=== PATIENT | female | born 1965 | race Caucasian/White ===

== ENCOUNTER 2020-02-29 20:06 | Inpatient (IN) | payer SELFPAY ==
[~2020-02-29] VITALS: Ht 177.8 cm; Wt 121.7 kg
--- NOTE | 2020-02-29 20:18 | PHYS DOC ---
Past History Past Medical History: No Pertinent History Past Medical History obesity Past Surgical History BTL Smoking: Non-smoker Alcohol Use: Heavy (nightly) Drug Use: None General Adult EDM: Chief Complaint: palpitations, chest pressure HPI: HPI: Patient is a 54 year old female who presents for evaluation of palpitations as well as some pressure in her chest. Onset about 3:30 PM today. She also feels lightheaded. Symptoms do wax and wane. She also noted that her blood pressure was elevated 160/85 at home. There is no reported dizziness, sweats or other symptoms. Patient did not pass out. There is no focal deficits or reported lateralizing signs. Patient has not seen a physician in many years. She is on no medication Review of Systems: Review of Systems: Constitutional: Denies fever or chills Eyes: Denies change in visual acuity HENT: Denies nasal congestion or sore throat Respiratory: Denies cough or shortness of breath Cardiovascular: mild chest pain no edema GI: Denies abdominal pain, nausea, vomiting, bloody stools or diarrhea : Denies dysuria Musculoskeletal: Denies back pain or joint pain Integument: Denies rash Neurologic: Denies headache, focal weakness or sensory changes Endocrine: Denies polyuria or polydipsia Lymphatic: Denies swollen glands Psychiatric: Denies depression or anxiety Heart Score: Risk Factors: Risk Factors: DM, Current or recent (<one month) smoker, HTN, HLP, family history of CAD, obesity. Risk Scores: Score 0 - 3: 2.5% MACE over next 6 weeks - Discharge Home Score 4 - 6: 20.3% MACE over next 6 weeks - Admit for Clinical Observation Score 7 - 10: 72.7% MACE over next 6 weeks - Early Invasive Strategies Physical Exam: PE: Constitutional: Well developed, well nourished, mild acute distress, non-toxic appearance. [] HENT: Normocephalic, atraumatic, bilateral external ears normal, oropharynx moist, no oral exudates, nose normal. [] Eyes: PERRL, EOMI, conjunctiva normal, no discharge. [] Neck: Normal range of motion, no tenderness, supple. [] Cardiovascular:Heart rate regular rhythm, no murmur [] Lungs & Thorax: Bilateral breath sounds clear to auscultation [] Abdomen: Bowel sounds normal, soft, no tenderness, no masses, no pulsatile masses. [] Skin: Warm, dry, no erythema, no rash. [] Back: No tenderness. [] Extremities: No tenderness, no cyanosis, no clubbing, ROM intact, no edema. [] Neurologic: Alert and oriented X 3, normal motor function, normal sensory function, no focal deficits noted. [] Psychologic: Affect normal, judgement normal, mood normal. [] Current Patient Data: Labs: Laboratory Tests Test 02/29/20 20:30 White Blood Count 5.5 x10^3/uL Red Blood Count 4.38 x10^6/uL Hemoglobin 15.3 g/dL Hematocrit 44.2 % Mean Corpuscular Volume 101 fL Mean Corpuscular Hemoglobin 35 pg Mean Corpuscular Hemoglobin Concent 35 g/dL Red Cell Distribution Width 13.0 % Platelet Count 215 x10^3/uL Neutrophils (%) (Auto) 53 % Lymphocytes (%) (Auto) 35 % Monocytes (%) (Auto) 9 % Eosinophils (%) (Auto) 1 % Basophils (%) (Auto) 3 % Neutrophils # (Auto) 2.9 x10^3uL Lymphocytes # (Auto) 1.9 x10^3/uL Monocytes # (Auto) 0.5 x10^3/uL Eosinophils # (Auto) 0.0 x10^3/uL Basophils # (Auto) 0.2 x10^3/uL Sodium Level 140 mmol/L Potassium Level 3.8 mmol/L Chloride Level 102 mmol/L Carbon Dioxide Level 24 mmol/L Anion Gap 14 Blood Urea Nitrogen 20 mg/dL Creatinine 1.0 mg/dL Estimated GFR (Cockcroft-Gault) 57.8 BUN/Creatinine Ratio 20 Glucose Level 110 mg/dL Calcium Level 9.6 mg/dL Total Bilirubin 0.6 mg/dL Aspartate Amino Transf (AST/SGOT) 65 U/L Alanine Aminotransferase (ALT/SGPT) 53 U/L Alkaline Phosphatase 127 U/L Creatine Kinase 93 U/L Creatine Kinase MB (Mass) 2.2 ng/mL Creatine Kinase MB Relative Index 2.4 % Troponin I Quantitative 0.141 ng/mL Total Protein 7.5 g/dL Albumin 3.8 g/dL Albumin/Globulin Ratio 1.0 Lipase 110 U/L Current Medications Medications (Trade) Dose Ordered Sig/Rossy Route PRN Reason Start Time Stop Time Status Last Admin Dose Admin Aspirin (Aspirin Chewable) 324 mg 1X ONCE PO 02/29/20 20:30 02/29/20 20:31 UNV 02/29/20 20:30 EKG: EKG: EKG showed normal sinus rhythm, rate 88, leftward axis, unremarkable EKG, not STEMI read at 2017 p.m. [] Radiology/Procedures: Radiology/Procedures: [address] [id number] IMAGING REPORT Signed PATIENT: TENZIN LAND ACCOUNT: [id number] : 1965 LOCATION: ER AGE: 54 SEX: F EXAM STATUS: PRE ER ORD. PHYSICIAN: LISA MARTE DO REASON: chest pressure PROCEDURE: PORTABLE CHEST 1V INDICATION: Reason: chest pressure / Spl. Instructions: / History: COMPARISON: None. FINDINGS: Single view of chest obtained. Relative haziness at left lung base but limited evaluation given portable technique with no lateral view. No evidence of consolidation elsewhere in the lungs. Cardiac silhouette unremarkable. IMPRESSION: * Mild haziness at the left lung base. This could be secondary to overlap of structures but a focus of atelectasis or infiltrate in the region is not excluded. No consolidation elsewhere in the lungs. Electronically signed by: Nitesh Bangura MD (02/29/2020 8:54 PM) [id number] DICTATED AND SIGNED BY: NITESH BANGURA MD DATE: 02/29/202053 CC: LISA MARTE DO ~ [] Course & Med Decision Making: Course & Med Decision Making Pertinent Labs and Imaging studies reviewed. (See chart for details) [] Dragon Disclaimer: Dragon Disclaimer: This electronic medical record was generated, in whole or in part, using a voice recognition dictation system. 2119 stable, chest pain-free at this time. Options were considered and patient will admitted for observation. Dr. John was the accepting physician. We will cycle cardiac enzymes. Will likely get cardiology consult in the morning. Departure Departure: Impression: Primary Impression: Precordial chest pain Additional Impression: Elevated troponin I level Disposition: ADMITTED INPATIENT Admitting Physician: Guerrero John Condition: STABLE Justification of Admission: Justification of Admission: Justification of Admission Dx: N/A LISA MARTE DO Feb 29, 2020 20:18
[2020-02-29] MEDS ORDERED: ASPIRIN CHEWABLE 81 MG TABLET. PO ONE (20:30)
[2020-02-29 20:48] LABS: BASO # 0.2 x10^3/uL (0.0-0.2); BASO % 3 % (0-3); EOS % 1 % (0-3); HEMATOCRIT 44.2 % (36.0-47.0); HEMOGLOBIN 15.3 g/dL (12.0-15.5); LYMPH # 1.9 x10^3/uL (1.0-4.8); LYMPH % 35 % (24-48); MEAN CORPUSCULAR HEMOGLOBIN 35 pg (25-35); MEAN CORPUSCULAR HGB CONC 35 g/dL (31-37); MEAN CORPUSCULAR VOLUME 101 fL (79-100); MONO # 0.5 x10^3/uL (0.0-1.1); MONO % 9 % (0-9); NEUT # 2.9 x10^3uL (1.8-7.7); NEUT % 53 % (31-73); PLATELET COUNT 215 x10^3/uL (140-400); RED BLOOD COUNT 4.38 x10^6/uL (3.50-5.40); WHITE BLOOD COUNT 5.5 x10^3/uL (4.0-11.0)
--- NOTE | 2020-02-29 20:57 | RAD ---
INDICATION: Reason: chest pressure / Spl. Instructions: / History: COMPARISON: None. FINDINGS: Single view of chest obtained. Relative haziness at left lung base but limited evaluation given portable technique with no lateral view. No evidence of consolidation elsewhere in the lungs. Cardiac silhouette unremarkable. IMPRESSION: * Mild haziness at the left lung base. This could be secondary to overlap of structures but a focus of atelectasis or infiltrate in the region is not excluded. No consolidation elsewhere in the lungs. Electronically signed by: Toni Stephenson MD (02/29/2020 8:54 PM) [id number]
[2020-02-29 20:58] LABS: CALCIUM 9.6 mg/dL (8.5-10.1); GFR 57.8; POTASSIUM 3.8 mmol/L (3.5-5.1)
[2020-02-29 21:14] LABS: ALBUMIN 3.8 g/dL (3.4-5.0); TOTAL BILIRUBIN 0.6 mg/dL (0.2-1.0); TOTAL PROTEIN 7.5 g/dL (6.4-8.2)
[2020-02-29] MEDS ORDERED: ONDANSETRON PF 4 MG/2 ML VIAL. IVP PRN (21:30)
--- NOTE | 2020-02-29 22:13 | EKG ---
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
[2020-02-29 22:32] VITALS: BP 128/83
[2020-02-29] MEDS ORDERED: ACETAMINOPHEN 500 MG TABLET PO PRN (23:45)
[2020-03-01] MEDS ORDERED: [UNRECOGNIZED DRUG - OTHER] PO (00:48)
--- NOTE | 2020-03-01 01:00 | NUR ---
The patient, TENZIN LAND, 54 y/o, F admitted by SAMI SALDAÑA MD, was given written information regarding hospital policies, unit procedures and contact persons. Valuables were checked and noted. PT presented to the ED with complaints of pain behind the RT shoulder blade at 2-10. PT assessed and noted to have an elevated troponin. PT admitted for rule out. Cardiology will be consulted in the morning. Reviewed with PT her PMH, PSH, SH, FH and medications. PT stated she had just started (, 02/24) a new weight loss medication of HCG Olga, 10 drops TID. This is the PT's only medication. Oriented PT to the unit.
--- NOTE | 2020-03-01 01:39 | NUR ---
Dr. John notified of second elevated troponin. Orders received. Per MD, continue with Cardiology consult in am, start ordered medications, continue to monitor. MD asked to not be notified if further elevation of troponin as PT is asymptomatic at this time. Per policy, third troponin will be drawn at 0323 as originally ordered. PT sleeping at this time and will continue to monitor.
[2020-03-01] MEDS ORDERED: NITROGLYCERIN SUBLINGUAL 0.4 MG BOTTLE OF 25. SL PRN (01:45)
--- NOTE | 2020-03-01 02:02 | NUR ---
PT status changed from OBS to IPT based on self-pay status.
[2020-03-01 03:20] VITALS: BP 120/76
[2020-03-01] MEDS: METOPROLOL TART IMMED RELEASE 50 MG TABLET PO SCH ×2 (03:25→08:11)
[2020-03-01] MEDS: ASPIRIN 325 MG TABLET PO SCH ×2 (03:25→08:11)
--- NOTE | 2020-03-01 08:23 | PDOC2 ---
CARDIAC CONSULT DATE OF CONSULT Date Of Consult DATE: 03/01/20 TIME: 08:18 REASON FOR CONSULT Reason for Consult NSTEMI REFERRING PHYSICIAN Referring Physician Dr. John SOURCE Source: Chart review, Patient HPI History of Present Illness This is a 54 yo female who presented secondary to chest pain and palpitations. Patient reports she was out yesterday afternoon at a pool [employer]. When she went to leave. Began feeling bad. Reports palpitations and pressure in her central chest. Was diaphoretic, dizzy. No specific shortness of breath. Had difficulty walking back to her care. Also has some pain in her upper back. Thought initially that she was overheated. Went home and rested and continued to feel poor. Pain, palpitations persisted so she came to the ED for further evaluation and treatment. No specific worsening or relieving factors. Pain resolved in the night and has not returned. No specific medical history although she has not been to a provider in about 10 years. PAST MEDICAL HISTORY GI: GERD PAST SURGICAL HISTORY Past Surgical History: Tubal Ligation FAMILY HISTORY Family History: Cancer SOCIAL HISTORY Smoke: No ALCOHOL: heavy (1-2 Vodka drinks daily) Drugs: None Lives: Alone CURRENT MEDICATIONS Current Medications Current Medications Aspirin (Aspirin Chewable) 324 mg 1X ONCE PO Last administered on 02/29/20at 20:30; Start 02/29/20 at 20:30; Stop 02/29/20 at 21:21; Status DC Ondansetron HCl (Zofran) 4 mg PRN Q4HRS PRN IVP NAUSEA/VOMITING; Start 02/29/20 at 21:30; Stop 03/01/20 at 21:29 Acetaminophen (Tylenol) 1,000 mg PRN Q6HRS PRN PO PAIN / TEMP > 100.3'F; Start 02/29/20 at 23:45 Aspirin (Katy Aspirin) 325 mg DAILYWBKFT PO Last administered on 03/01/20at 08:11; Start 03/01/20 at 02:00 Nitroglycerin (Nitrostat) 0.4 mg PRN Q5MIN PRN SL CHEST PAIN; Start 03/01/20 at 01:45 Metoprolol Tartrate (Lopressor) 50 mg BID PO Last administered on 03/01/20at 08:11; Start 03/01/20 at 02:00 Active Scripts Active Reported [hcg triumph] 10 Drop PO TID ALLERGIES Allergies: Coded Allergies: No Known Drug Allergies (Unverified , 02/29/20) ROS Review of Systems 14 point ROS conducted with pertinent positives noted above in HPI PHYSICAL EXAM General: Alert, Oriented X3, Cooperative, No acute distress HEENT: Atraumatic, Mucous membr. moist/pink Lungs: Clear to auscultation Heart: Regular rate, Other (3/6 systolic murmur ) Abdomen: Soft, No tenderness Extremities: No edema, Normal pulses Skin: No breakdown Neuro: Normal speech, Sensation intact Psych/Mental Status: Mental status NL, Mood NL MUSCULOSKELETAL: Osteoarthritic changes both hands VITALS Vital Signs Vital Signs Date Time Temp Pulse Resp B/P (MAP) Pulse Ox O2 Delivery O2 Flow Rate FiO2 03/01/20 08:11 95 120/76 03/01/20 03:20 98.0 18 97 Room Air LABS LABS Laboratory Tests Test 02/29/20 20:30 03/01/20 00:25 White Blood Count 5.5 x10^3/uL (4.0-11.0) Red Blood Count 4.38 x10^6/uL (3.50-5.40) Hemoglobin 15.3 g/dL (12.0-15.5) Hematocrit 44.2 % (36.0-47.0) Mean Corpuscular Volume 101 fL (79-100) Mean Corpuscular Hemoglobin 35 pg (25-35) Mean Corpuscular Hemoglobin Concent 35 g/dL (31-37) Red Cell Distribution Width 13.0 % (11.5-14.5) Platelet Count 215 x10^3/uL (140-400) Neutrophils (%) (Auto) 53 % (31-73) Lymphocytes (%) (Auto) 35 % (24-48) Monocytes (%) (Auto) 9 % (0-9) Eosinophils (%) (Auto) 1 % (0-3) Basophils (%) (Auto) 3 % (0-3) Neutrophils # (Auto) 2.9 x10^3uL (1.8-7.7) Lymphocytes # (Auto) 1.9 x10^3/uL (1.0-4.8) Monocytes # (Auto) 0.5 x10^3/uL (0.0-1.1) Eosinophils # (Auto) 0.0 x10^3/uL (0.0-0.7) Basophils # (Auto) 0.2 x10^3/uL (0.0-0.2) Sodium Level 140 mmol/L (136-145) Potassium Level 3.8 mmol/L (3.5-5.1) Chloride Level 102 mmol/L (98-107) Carbon Dioxide Level 24 mmol/L (21-32) Anion Gap 14 (6-14) Blood Urea Nitrogen 20 mg/dL (7-20) Creatinine 1.0 mg/dL (0.6-1.0) Estimated GFR (Cockcroft-Gault) 57.8 BUN/Creatinine Ratio 20 (6-20) Glucose Level 110 mg/dL (70-99) Calcium Level 9.6 mg/dL (8.5-10.1) Total Bilirubin 0.6 mg/dL (0.2-1.0) Aspartate Amino Transf (AST/SGOT) 65 U/L (15-37) Alanine Aminotransferase (ALT/SGPT) 53 U/L (14-59) Alkaline Phosphatase 127 U/L (46-116) Creatine Kinase 93 U/L (26-192) Creatine Kinase MB (Mass) 2.2 ng/mL (0.0-3.6) Creatine Kinase MB Relative Index 2.4 % (0-4) Troponin I Quantitative 0.141 ng/mL (0-0.055) 3.211 ng/mL (0-0.055) Total Protein 7.5 g/dL (6.4-8.2) Albumin 3.8 g/dL (3.4-5.0) Albumin/Globulin Ratio 1.0 (1.0-1.7) Lipase 110 U/L (73-393) ASSESSMENT/PLAN Assessment/Plan 1. Chest pain, palpitations 2. NSTEMI; trop 3.7 3. GERD 4. ETOH misuse Recommendations ASA therapy Start heparin gtt Lipids, TSH Metoprolol added Echo to assess LV systolic function Given presentation in the setting of NSTEMI, recommend further ischemic evaluation with [facility]. R/b/a discussed with patient and she is agreeable to jaxson carney. Will transfer to [facility]. GIORGI. DANG ALEMAN APRN Mar 01, 2020 08:23
[2020-03-01 08:30] VITALS: BP 147/90
[2020-03-01] MEDS ORDERED: HEPARIN for IV BOLUS 10,000 UNIT/10 ML VIAL. IV ONE (08:30)
[2020-03-01] MEDS ORDERED: HEPARIN for IV BOLUS 10,000 UNIT/10 ML VIAL. IV PRN ×2 (08:30→09:00)
[2020-03-01] MEDS ORDERED: HEPARIN 25,000UTS/250ML PREMIX 250 ML IV PRN (09:00)
[2020-03-01] MEDS ORDERED: METOPROLOL TART IMMED RELEASE 25 MG TABLET PO SCH (09:00)
--- NOTE | 2020-03-01 10:21 | HP ---
ADMIT DATE: 03/01/2020 ATTENDING PHYSICIAN: Dr. Saldaña. CHIEF COMPLAINT: Chest pressure. HISTORY OF PRESENT ILLNESS: The patient is a 54-year-old female, who has been fairly healthy. She does not see any doctor. She is not on any medications. She presented with new onset of chest pressure and palpitations. About 3:30 in the afternoon, she felt lightheaded, symptoms waxed and waned. She noted that her blood pressure had been elevated at home. She does not take any medication. She had no focal deficits. She has not seen a regular doctor in many years. She is not on any medications. She has no known drug allergies. In the ED, the EKG showed a sinus tachycardia, rate about 100 per minute. The first set of cardiac enzyme was negative for myocardial necrosis. She was admitted for evaluation. However, the second set did turn positive with a troponin of 3.1. She is admitted then with a non-ST elevation myocardial infarction, non-STEMI. PAST MEDICAL HISTORY: Significant for heavy alcohol use. She drinks a fifth of vodka every 2 days. She does not smoke. She did smoke up to 20 years ago. There is no drug use. She is not on any prescription medicines. ALLERGIES: She has no known drug allergies. FAMILY HISTORY: Father at age 62 of lung cancer. Mom at age 77 of probable cardiac event; she in her sleep. There is no previous history of DC. There is no recorded diabetes. She does have hypertension related to her alcohol use. She is not aware of her cholesterol panel. REVIEW OF SYSTEMS: Significant for the symptoms that brought her in. She denied any pains currently. She denied any nausea, vomiting, diarrhea or hematemesis. All other systems reviewed and determined to be negative. 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 She is currently unemployed. PHYSICAL EXAMINATION: GENERAL: When I saw her, this is a pleasant, middle-aged female. INITIAL VITAL SIGNS: Showed a blood pressure 120/76, pulse is 95 and regular, temperature 98.0 degrees Fahrenheit, oxygen saturation 97% on room air. HEENT: Head is without trauma. Pupils are reactive. Sclerae are nonicteric. Oropharynx is clear. NECK: Supple, no bruits identified. LUNGS: Otherwise clear. CARDIOVASCULAR: Showed regular heart tones. No gallops. Peripheral pulses are palpable and full. ABDOMEN: Obese, protuberant. No organomegaly. Bowel sounds are hypoactive. EXTREMITIES: Showed no cyanosis or edema. NEUROLOGIC: Focally intact. Speech is fluent. She had no focal deficits. SKIN: Warm and dry. PERTINENT LABORATORY STUDIES: The first troponin was 0.14. The second troponin was 3.21. Electrolytes are within normal range. Nonfasting blood sugar 110 mg/dL. Hemoglobin 15.3 g/dL with a white count of 5500. Chest x-ray showed heart size to be within normal limits. There is no decompensation. No infiltrates identified. The resting 12-lead electrocardiogram showed a sinus tachycardia, no acute ST segment changes were noted. ASSESSMENT: 1. A 54-year-old female with non-ST elevation myocardial infarction. 2. Chronic alcoholism. 3. Essential hypertension. PLAN: 1. Admit to our unit. 2. Aspirin and beta dirk started. 3. Cardiology consultation in the morning for further evaluation. SAMI SALDAÑA MD DR: PAT/diana JOB#: [id number] / [id number]
[2020-03-01 11:21] VITALS: BP 146/54
--- NOTE | 2020-03-01 12:18 | NUR ---
Patient has been calm, pleasant, and cooperative this shift. She has had some mild anxiety, but appears to be reassured after talking with charge nurse. Patient is frequently on the phone with family. Awaiting a bed assignment at [facility] to transfer. Will continue to monitor.
--- NOTE | 2020-03-01 12:45 | CARD ---
MR#: [id number] Date of Study: 03/01/2020 Ordering Physician: DANG ALEMAN, Referring Physician: DANG ALEMAN, Tech: Florencia Kennedy APPROVED REPORT EXAM: Two-dimensional and M-mode echocardiogram with Doppler and color Doppler. Other Information Quality : AverageHR: 72bpm INDICATION Palpitations Non STEMI Elevated Troponin RISK FACTORS Hypertension 2D DIMENSIONS Left Atrium(2D)3.8 (1.6-4.0cm)IVSd1.3 (0.7-1.1cm) Aortic Root(2D)3.5 (2.0-3.7cm)LVDd5.1 (3.9-5.9cm) LVOT Diameter2.3 (1.8-2.4cm)PWd1.1 (0.7-1.1cm) LVDs2.6 (2.5-4.0cm)FS (%) 48.7 % SV96.7 mlLVEF(%)79.8 (>50%) Aortic Valve AoV Peak Jose David.238.6cm/sAoV VTI56.1cm AO Peak GR.22.8mmHgLVOT Peak Jose David.144.3cm/s LVOT VTI 32.56cmAO Mean GR.13mmHg CAROL (VMAX)2.80bm3IWW (VTI)2.34cm2 Mitral Valve MV E Gtolmmps773.1cm/sMV E Peak Gr.4mmHg MV DECEL [id number] A Tbwfgcyd36.6cm/s MV E Mean Gr.2mmHgE/A Ratio1.4 Pulmonary Valve PV Peak Nozaeqog77.8cm/sPV Peak Grad.2mmHg Tricuspid Valve TR P. Yujnbvga066jf/sRAP FKBAXRFT9wmWd TR Peak Gr.04qhXmYBRW70jsIe Pulmonary Vein S1 Qyvhsseu97.8cm/sD2 Zkzutyxl61.6cm/s LEFT VENTRICLE The left ventricle is normal size. There is mild to moderate concentric left ventricular hypertrophy. The left ventricular systolic function is normal. The Ejection Fraction is 55-60%. There is normal L V segmental wall motion. Transmitral Doppler flow pattern is Grade I-abnormal relaxation pattern. RIGHT VENTRICLE The right ventricle is normal size. There is normal right ventricular wall thickness. The right ventr icular systolic function is normal. ATRIA The left atrium is mildly to moderately dilated. The right atrium size is normal. The interatrial sep raquel is intact with no evidence for an atrial septal defect or patent foramen ovale as noted on 2-D or Doppler imaging. AORTIC VALVE The aortic valve is normal in structure and function. Doppler and Color Flow revealed no significant aortic regurgitation. There is no significant aortic valvular stenosis. Calculated aortic valve area is 3 cm2 with maximum pressure gradient of 23 mmHg and mean pressure gradient of 13 mmHg. MITRAL VALVE The mitral valve is normal in structure and function. There is no evidence of mitral valve prolapse. There is no mitral valve stenosis. Doppler and Color-flow revealed trace mitral regurgitation. TRICUSPID VALVE The tricuspid valve is normal in structure and function. Doppler and Color Flow revealed trace tricus pid regurgitation with an estimated PAP of 29 mmHg. There is no tricuspid valve stenosis. PULMONIC VALVE The pulmonic valve is not well visualized. Doppler and Color Flow revealed trace pulmonic valvular re gurgitation. GREAT VESSELS The aortic root is normal in size. The IVC is normal in size and collapses >50% with inspiration. PERICARDIAL EFFUSION There is no evidence of significant pericardial effusion. Critical Notification Critical Value: No <Conclusion> The left ventricular systolic function is normal. The Ejection Fraction is 55-60%. There is normal LV segmental wall motion. Transmitral Doppler flow pattern is Grade I-abnormal relaxation pattern. Trace mitral regurgitation. Trace tricuspid regurgitation with an estimated PAP of 29 mmHg. There is no evidence of significant pericardial effusion. Signed by : Manny Ha, Electronically Approved : 03/01/2020 12:44:46
--- NOTE | 2020-03-01 14:02 | NUR ---
Discharge Note: TENZIN LAND Discharge instructions and discharge home medications reviewed with Other facility and a copy given. All questions have been answered and understanding verbalized. The following instructions and handouts were given: Discharge medications Patient transported with 20g PIV in right AC intact with heparin drip at 14.6mL/hr infusing. Patient discharged to [facility] with personal belongings via EMS
--- NOTE | 2020-03-01 15:36 | DS ---
DATE OF DISCHARGE: 03/01/2020 ATTENDING PHYSICIAN: Dr. Saldaña. FINAL DISCHARGE DIAGNOSES: 1. Non-ST segment elevation myocardial infarction. 2. Chest pain. 3. Chronic alcoholism. HISTORY OF PRESENT ILLNESS: This is a 54-year-old female with no previous cardiac history. She was at a pool [employer]. She reports palpitation and chest pressure. She was diaphoretic, little dizzy. She drinks quite a bit; however, she does not have any other risk factors. She is a nonsmoker. There is no history of diabetes or hyperlipidemia. She had an initial EKG, which was nondiagnostic. Chest x-ray was unremarkable. The first set of cardiac enzyme was unremarkable. The second set; however, peaked at 3.1 and the third set peaked at 3.7. She was seen in consultation by Cardiology and sent here for stabilization before further evaluation at [facility]. PHYSICAL EXAMINATION: Please see the dictated note. PERTINENT LABORATORY AND X-RAY STUDIES: Her serial enzymes first set was 0.141, second set 3.211, third set 3.705. Electrolytes within normal range. Hemoglobin maintained at 15.3 g/dL with a white count of 5500. MCV is 101. COURSE IN THE HOSPITAL: The patient was admitted. Serial enzymes revealed elevation of troponin levels. She was hemodynamically stable. We gave her an aspirin along with beta blockers. Cardiology saw her and heparin was initiated. After consultation with Cardiology services, it was decided the patient will be transferred to [facility] for cardiac catheterization. Therefore, on the next hospital day, she was transferred to [facility]. Her meds include the heparin drip along with beta blockers and aspirin. Her prognosis is fair. She was discharged then from our hospital in stable condition with explicit instructions and followup care. SAMI SALDAÑA MD DR: PAT/diana JOB#: [id number] / [id number]
[2020-03-02 14:34] LABS: THYROID STIM HORMONE (TSH) 11.524 uIU/mL (0.358-3.740)
== END 2020-03-01 14:06 | disposition short-term general hospital (02) | DRG 282 ==
LOC: ER 20:06 → 1 SOUTH 21:20 → OBSVTOIN 03-01 02:02
PROVIDERS: ADMIT Hospitalist; ATTEND Hospitalist
DX: I21.4 Non-ST elevation (NSTEMI) myocardial infarction (principal); K21.9 Gastro-esophageal reflux disease without esophagitis; I10 Essential (primary) hypertension; F10.20 Alcohol dependence, uncomplicated; Z79.899 Other long term (current) drug therapy
CPT/HCPCS: 36415; 71045; 80053; 80061; 82553; 83690; 84443; 84484; 85025; 85610; 85730; 93005; 93306; 99285; G0378; G0379; J1644

== ENCOUNTER 2020-07-24 11:55 | Emergency (ER) | payer SELFPAY ==
[~2020-07-24] VITALS: Ht 177.8 cm; Wt 121.7 kg
[~2020-07-24 11:55] MED LIST: [UNRECOGNIZED DRUG - OTHER] PO
--- NOTE | 2020-07-24 12:10 | PHYS DOC ---
Past History Past Medical History: Hypertension, [place] Past Surgical History: Tubal ligation, Other Additional Past Surgical Histo: uterine ablation, growth removed from lt femur as a baby (1965) Smoking: Non-smoker Alcohol Use: Heavy Drug Use: None Adult General Chief Complaint Chief Complaint: Palpitations [facility] HPI Patient is a 54-year-old female who presents for heart palpitations. States this happened 45 minutes prior to arrival while ambulatory at work. Nothing known makes better or worse. Patient reports she sat down and these palpit ations were transient and self-limiting resolving in less than 3 minutes. Patient denies any pain, ripping or tearing or pressure sensations, just reports "feeling odd". She has not had recent fever, no changes in medication, and no changes in health. Patient states this is happened several times throughout her life but she never thought anything about it. Nonetheless, she suffered a NSTEMI February 2020 and since then, has been more cautious in regards to her body and so, she presented to our ER for full evaluation. Patient reports having full cardiac work-up performed February 2020, etiology of NSTEMI was unknown and she was not infectious and had no other obvious inciting events at that time. She was admitted to [facility] and subsequently transferred to [facility] where she underwent extensive provocative cardiac testing including a heart catheterization but states it was "clean", no stents or other intervention performed. 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 Patient does admit that she wears a fit bit daily and at times she has had isolated episodes of tachycardia in the low 100s. She takes a heart medicine that begins with "C", is unsure what this is, states she is unsure if she took it today Review of Systems Review of Systems Fourteen body systems of review of systems have been reviewed. See HPI for pertinent positives and negative responses, other mathew all other systems are negative, non-pertinent or non-contributory Allergies Allergies Allergies Coded Allergies Type Severity Reaction Last Updated Verified No Known Drug Allergies 02/29/20 No Physical Exam Physical Exam Constitutional: Well developed, well nourished, no acute distress, non-toxic appearance. HENT: Normocephalic, atraumatic, bilateral external ears normal, oropharynx moist, no oral exudates, nose normal. Eyes: PERRLA, EOMI, conjunctiva normal, no discharge. Neck: Normal range of motion, no tenderness, supple, no stridor. Cardiovascular: Heart rate regular, sinus rhythm, no murmurs rubs or gallops Lungs & Thorax: Bilateral breath sounds clear to auscultation Abdomen: Bowel sounds normal, soft, no tenderness, no masses, no pulsatile masses. Nonsurgical abdomen, no peritoneal signs Skin: Warm, dry, no erythema, no rash. Back: No tenderness, no CVA tenderness. Extremities: No tenderness, no cyanosis, no clubbing, ROM intact, no edema. Neurologic: Alert and oriented X 3, grossly normal motor & sensory function, no focal deficits noted. Psychologic: Affect normal, judgement normal, mood normal. Current Patient Data Vital Signs Vital Signs Date Time Temp Pulse Resp B/P (MAP) Pulse Ox O2 Delivery O2 Flow Rate FiO2 07/24/20 11:59 97.6 93 16 165/85 (111) 98 Lab Results Laboratory Tests Test 07/24/20 12:10 White Blood Count 7.1 x10^3/uL (4.0-11.0) Red Blood Count 4.51 x10^6/uL (3.50-5.40) Hemoglobin 14.9 g/dL (12.0-15.5) Hematocrit 44.8 % (36.0-47.0) Mean Corpuscular Volume 99 fL (79-100) Mean Corpuscular Hemoglobin 33 pg (25-35) Mean Corpuscular Hemoglobin Concent 33 g/dL (31-37) Red Cell Distribution Width 13.4 % (11.5-14.5) Platelet Count 227 x10^3/uL (140-400) Neutrophils (%) (Auto) 53 % (31-73) Lymphocytes (%) (Auto) 34 % (24-48) Monocytes (%) (Auto) 9 % (0-9) Eosinophils (%) (Auto) 1 % (0-3) Basophils (%) (Auto) 2 % (0-3) Neutrophils # (Auto) 3.8 x10^3uL (1.8-7.7) Lymphocytes # (Auto) 2.4 x10^3/uL (1.0-4.8) Monocytes # (Auto) 0.7 x10^3/uL (0.0-1.1) Eosinophils # (Auto) 0.1 x10^3/uL (0.0-0.7) Basophils # (Auto) 0.2 x10^3/uL (0.0-0.2) Sodium Level 142 mmol/L (136-145) Potassium Level 3.7 mmol/L (3.5-5.1) Chloride Level 105 mmol/L (98-107) Carbon Dioxide Level 27 mmol/L (21-32) Anion Gap 10 (6-14) Blood Urea Nitrogen 19 mg/dL (7-20) Creatinine 1.4 mg/dL (0.6-1.0) Estimated GFR (Cockcroft-Gault) 39.2 BUN/Creatinine Ratio 14 (6-20) Glucose Level 108 mg/dL (70-99) Calcium Level 10.4 mg/dL (8.5-10.1) Total Bilirubin 1.3 mg/dL (0.2-1.0) Aspartate Amino Transf (AST/SGOT) 25 U/L (15-37) Alanine Aminotransferase (ALT/SGPT) 30 U/L (14-59) Alkaline Phosphatase 126 U/L (46-116) Troponin I Quantitative < 0.017 ng/mL (0-0.055) [facility]-Med-O-Type Natriuretic Peptide 117 pg/mL (0-124) Total Protein 7.4 g/dL (6.4-8.2) Albumin 3.9 g/dL (3.4-5.0) Albumin/Globulin Ratio 1.1 (1.0-1.7) EKG EKG EKG ordered and interpreted by myself at 1208 hrs. as sinus rhythm at 96 bpm, unremarkable intervals, left axis deviation, no acute ischemic findings, no STEMI Radiology/Procedures Radiology/Procedures Clinical History: Reason: CP / Spl. Instructions: / History: Technique: AP view of the chest was obtained at 07/24/2020 12:09 PM. Comparison: None. Findings: The cardiomediastinal silhouette is normal. The pulmonary vasculature is normal. There is linear opacities in the lung bases left more than right. Impression: Basal infiltrates likely discoid atelectasis. Electronically signed by: Ricky Howard III, MD (07/24/2020 12:34 PM) [facility] Heart Score HEART Score for Chest Pain: HEART Score for Chest Pain Response (Comments) Value History Slighlty/Non-Suspicious 0 ECG Normal 0 Age >45 - < 65 1 Risk Factors >3 Risk Factors or Hx CAD 2 Troponin < Normal Limit 0 Total 3 Risk Factors: Risk Factors: DM, Current or recent (<one month) smoker, HTN, HLP, family history of CAD, obesity. Risk Scores: Risk Factors: DM, Current or recent (<one month) smoker, HTN, HLP, family history of CAD, obesity. Course & Med Decision Making Course & Med Decision Making Pertinent Labs and Imaging studies reviewed. (See chart for details) Discussed most likely diagnosis of transient tachyarrhythmia. Patient missed her morning dose of metoprolol extended release 25 mg. I feel that this in addition to the fact that patient is dehydrated is likely cause of her symptoms experienced prior to arrival Patient responded to ER intervention well, remained asymptomatic throughout entirety of visit with no recurrence of tachyarrhythmia or any other cause and/or explanation for patient's palpitations Case discussed at length, I discussed utility in cardiac observation but feel this is unnecessary given recent clean cardiac cath. Joint decision to discharge home Patient was advised and educated on importance of close outpatient follow-up. I advised them to call primary care physician as soon as possible to discuss following up in outpatient setting after ER departure for repeat examination and evaluation. Strict return precautions were discussed at length with good understanding by patient who is able to restate plan and concerning signs or symptoms that should prompt immediate medical attention. All questions and concerns addressed prior to ER departure Dragon Disclaimer Dragon Disclaimer This electronic medical record was generated, in whole or in part, using a voice recognition dictation system. Departure Departure: Impression: Primary Impression: Palpitations Disposition: 01 DC HOME SELF CARE/HOMELESS Condition: STABLE Referrals: PCP,NO (PCP) Patient Instructions: Palpitations Additional Instructions: As discussed prior to ER departure, please continue to heat adequate fluid intake and take your medications daily As discussed I would advise you call your primary care physician and retail cosmetics sales counter manager first thing tomorrow to review and discuss ER visit today. You would benefit from outpatient follow-up in upcoming 10 days after ER visit for repeat evaluation If any concerning signs or symptoms present prior to outpatient follow-up please do not hesitate to come back for repeat evaluation It was a pleasure to take care of you today and I wish you the best going forward ARLET SEGOVIA DO Jul 24, 2020 12:10
[2020-07-24 12:30] LABS: BASO # 0.2 x10^3/uL (0.0-0.2); BASO % 2 % (0-3); EOS # 0.1 x10^3/uL (0.0-0.7); EOS % 1 % (0-3); HEMATOCRIT 44.8 % (36.0-47.0); HEMOGLOBIN 14.9 g/dL (12.0-15.5); LYMPH # 2.4 x10^3/uL (1.0-4.8); LYMPH % 34 % (24-48); MEAN CORPUSCULAR HEMOGLOBIN 33 pg (25-35); MEAN CORPUSCULAR HGB CONC 33 g/dL (31-37); MEAN CORPUSCULAR VOLUME 99 fL (79-100); MONO # 0.7 x10^3/uL (0.0-1.1); MONO % 9 % (0-9); NEUT # 3.8 x10^3uL (1.8-7.7); NEUT % 53 % (31-73); PLATELET COUNT 227 x10^3/uL (140-400); RED BLOOD COUNT 4.51 x10^6/uL (3.50-5.40); RED CELL DISTRIBUTION WIDTH 13.4 % (11.5-14.5); WHITE BLOOD COUNT 7.1 x10^3/uL (4.0-11.0)
[2020-07-24 12:36] LABS: CALCIUM 10.4 mg/dL (8.5-10.1); CREATININE 1.4 mg/dL (0.6-1.0); GFR 39.2; POTASSIUM 3.7 mmol/L (3.5-5.1)
--- NOTE | 2020-07-24 12:37 | RAD ---
PORTABLE CHEST 1V Clinical History: Reason: CP / Spl. Instructions: / History: Technique: AP view of the chest was obtained at 07/24/2020 12:09 PM. Comparison: None. Findings: The cardiomediastinal silhouette is normal. The pulmonary vasculature is normal. There is linear opacities in the lung bases left more than right. Impression: Basal infiltrates likely discoid atelectasis. Electronically signed by: Ricky Howard III, MD (07/24/2020 12:34 PM) [facility]
[2020-07-24] MEDS ORDERED: METO25TA4 PO (12:43)
[2020-07-24] MEDS ORDERED: ATOR40TA59 PO (12:44)
[2020-07-24] MEDS ORDERED: ASPIRIN CHEWABLE 81 MG TABLET. PO ONE (12:45)
[2020-07-24 12:48] LABS: ALBUMIN 3.9 g/dL (3.4-5.0); ALBUMIN/GLOBULIN RATIO 1.1 (1.0-1.7); TOTAL BILIRUBIN 1.3 mg/dL (0.2-1.0); TOTAL PROTEIN 7.4 g/dL (6.4-8.2)
[2020-07-24] MEDS ORDERED: METOPROLOL SUCC 24HR ER 25 MG TAB.ER.24H. PO ONE (13:00)
[2020-07-24] MEDS ORDERED: IV NORMAL SALINE 500ML 500 ML IV ONE (13:15)
[2020-07-24 14:00] VITALS: BP 147/88
--- NOTE | 2020-07-25 09:02 | EKG ---
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
== END 2020-07-24 14:10 | disposition home or self-care (01) ==
LOC: ER 11:55
DX: R00.2 Palpitations (principal); R00.0 Tachycardia, unspecified; I10 Essential (primary) hypertension; I25.2 Old myocardial infarction; F10.20 Alcohol dependence, uncomplicated; Y90.9 Presence of alcohol in blood, level not specified
CPT/HCPCS: 36415; 71045; 80053; 83880; 84484; 85025; 93005; 99285; J7040